=== PATIENT | female | born 1960 | race Caucasian/White ===

== ENCOUNTER → 2016-05-12 | Outpatient (CLI) | payer BC | END | disposition home or self-care (01) | LOC: GMAJ 10:35 | PROVIDERS: ATTEND Family Medicine | DX: E03.9 Hypothyroidism, unspecified (principal) ==

== ENCOUNTER → 2016-06-06 | Outpatient (CLI) | payer BC ==
--- NOTE | 2016-06-07 10:30 | MAM ---
History: Well woman exam. Date of exam: 06/06/2016 Services provided: Bilateral full field digital screening mammography. CAD, the images were reviewed with R2 computer aided detection. FINDINGS: Glandular tissue is scattered glandular contour with increased mammographic density. Comparison with 2013 and 2015 exam. Focal asymmetry left breast 12:00 approximately 5 to 6 cm from the nipple. Glandular pattern on the right remains stable. No architectural distortion, dominant mass or clustered microcalcification. IMPRESSION: Incomplete exam Recommendation: True lateral view left breast with spot compression films in the true lateral and craniocaudal projections. Directed ultrasound if indicated clinically. BIRAD CATEGORY: 0 INCOMPLETE Electronically signed by: Marybel Kelley MD 06/07/2016 10:27 AM CDT
== END | disposition home or self-care (01) ==
LOC: MAMMO 08:26
PROVIDERS: ATTEND Family Medicine
DX: Z12.31 Encounter for screening mammogram for malignant neoplasm of breast (principal)

== ENCOUNTER → 2016-06-29 | Outpatient (CLI) | payer BC ==
--- NOTE | 2016-06-29 15:51 | MAM ---
History: Asymmetry upper outer left breast. DATE OF SERVICE: 06/29/2016 Services provided: Full field digital diagnostic left mammography. Bilateral whole breast sonography. FINDINGS: True lateral view with spot compression films are obtained in order to further evaluate a questioned mammographic asymmetry on the screening evaluation performed on 06/06/2016 along the periphery of the glandular tissue in the axillary tail. The additional views demonstrate heterogeneously dense glandular tissue with benign-appearing calcifications and no definite persistent asymmetry or distortion. Because of the glandular density and clinical family history of breast cancer, sonography was requested bilaterally. Ultrasound evaluation confirms normal appearance to the fibroglandular tissue with scattered 4 to 5 mm simple cysts. There is no sonographically suspicious finding. IMPRESSION: Benign exam. No mammographic or sonographic evidence for malignancy in either breast. Recommendation: Routine annual mammography. Findings and recommendations were communicated to the patient. BIRAD CATEGORY: 2D NORMAL DENSE Electronically signed by: Marybel Kelley MD 06/29/2016 3:51 PM CDT
== END | disposition home or self-care (01) ==
LOC: MAMMO 14:09
PROVIDERS: ATTEND Family Medicine
DX: R92.8 Other abnormal and inconclusive findings on diagnostic imaging of breast (principal)

== ENCOUNTER → 2017-06-04 | Outpatient (CLI) | payer BC | LOC: GMAJ 12:14 | PROVIDERS: ATTEND Family Medicine | DX: Z00.00 Encounter for general adult medical examination without abnormal findings (principal) ==

== ENCOUNTER → 2019-08-27 | Outpatient (CLI) | payer BC | LOC: GMAJ 10:55 | PROVIDERS: ATTEND Family Medicine | DX: E03.9 Hypothyroidism, unspecified (principal); I10 Essential (primary) hypertension ==